=== PATIENT | female | born 1995 | race Caucasian/White ===

== ENCOUNTER → 2024-04-04 | Outpatient (CLI) | payer OTHER ==
--- NOTE | 2024-04-06 12:27 | US ---
EXAMINATION TYPE: US thyroid st tissue head/neck DATE OF EXAM: 04/04/2024 COMPARISON: NONE CLINICAL INDICATION: Female, 28 years old with history of E04.2 NONTOXIC MULTINODULAR GOITER; Patient states having a hx of thyroid nodules. Not on thyroid meds. GLAND SIZE: Right Lobe: 5.9 x 1.7 x 1.6 cm Overall Parenchyma: homogeneous Left Lobe: 5.7 x 2.5 x 1.9 cm Overall Parenchyma: homogeneous Isthmus Thickness: 0.6 cm NODULES RIGHT: # of nodules measured on right: 2 1. 0.9 X 0.8 x 0.5 cm, mid mid, solid or almost completely solid, isoechoic nodule, which is wider than tall, with smooth margins, without echogenic foci. Prior size: No prior here 2. 1.6 x 1.1 x 0.9 cm, mid lateral, solid or almost completely solid, isoechoic nodule, which is wid er than tall, with smooth margins, without echogenic foci. Prior size: No prior here LEFT: # of nodules measured on left: 3 1. 3.1 X 2.8 x 1.4 cm, lower medial, mixed cystic and solid, isoechoic nodule, which is wider than tall, with smooth margins, without echogenic foci. Prior size: No prior here 2. 1.0 X 0.9 x 0.7 cm, mid medial, solid or almost completely solid, hypoechoic nodule, which is w ider than tall, with smooth margins, without echogenic foci. Prior size: No prior here 3. 0.6 X 0.7 x 0.5 cm, mid lateral, mixed cystic and solid, isoechoic nodule, which is wider than t all, with smooth margins, without echogenic foci. Prior size: No prior here ISTHMUS: # of nodules measured in the isthmus: 0 Bilateral neck scanned, no evidence of lymphadenopathy. IMPRESSION: Mildly Suspicious: FNA if ? 2.5 cm; Follow if ? 1.5 cm at 1, 3, and 3 y 2017 ACR TI-RADS LEVEL: TR3 *Highest TI-RADS level nodule reported
== END | disposition home or self-care (01) ==
LOC: RADUSWWP 11:29
PROVIDERS: ATTEND Internal Medicine
DX: E04.2 Nontoxic multinodular goiter (principal); R22.0 Localized swelling, mass and lump, head
CPT/HCPCS: 76536

== ENCOUNTER → 2024-04-04 | Outpatient (CLI) | payer OTHER ==
[2024-04-04 18:55] LABS: T4, Free (Free Thyroxine) 1.48 ng/dL (0.80-1.80)
== END | disposition home or self-care (01) ==
LOC: LABWHC1 11:48
PROVIDERS: ATTEND Internal Medicine
DX: E04.2 Nontoxic multinodular goiter (principal)
CPT/HCPCS: 36415; 84439; 84443; 86376